=== PATIENT | male | born 1985 | race African-American/Black ===

== ENCOUNTER 2019-02-07 21:26 | Emergency (ER) | payer OTHER ==
[~2019-02-07] VITALS: Ht 180.3 cm; Wt 78.9 kg
[2019-02-07 21:53] LABS: ABSOLUTE NEUTROPHILS 7.8 thou/uL (1.4-8.2); BASOPHILS 0.4 % (0.0-2.0); EOSINOPHILS 0.7 % (0.0-3.0); HEMOGLOBIN 12.6 gm/dL (14.0-18.0); LYMPHOCYTES 20.3 % (24.0-44.0); MCH 23.1 pg (26.0-34.0); MCHC 32.2 g/dL (28.0-37.0); MCV 71.7 fL (80.0-100.0); MONOCYTES 9.3 % (1.0-8.0); PLATELET COUNT 191 thou/uL (150-400); POLYS 69.3 % (36.0-66.0); RBC 5.43 mil/uL (4.50-6.00); WBC 11.2 thou/uL (4.0-11.0)
[2019-02-07 22:01] LABS: ANION GAP 11 mmol/L (7-16); BUN 15 mg/dL (7-18); CALCIUM 9.1 mg/dL (8.5-10.1); CHLORIDE 106 mmol/L (98-107); CO2 24 mmol/L (21-32); CREATININE 1.1 mg/dL (0.7-1.3); GLUCOSE 88 mg/dL (74-106); POTASSIUM 3.4 mmol/L (3.5-5.1); SODIUM 141 mmol/L (136-145)
[2019-02-07 22:09] LABS: TROPONIN-I <0.06 ng/mL (<0.06)
[2019-02-07 22:43] VITALS: BP 109/59
--- NOTE | 2019-02-08 08:49 | EKG ---
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 : 1985 Requested By: Gabe Haynes Order Number: [id number] MD: Ludwig Patel Measurements Intervals [place] Rate: 69 P: 70 [place]: 169 QRS: 68 QRSD: 91 T: 61 QT: 386 QTc: 414 Interpretive Statements Sinus rhythm with competing junctional rhythm and sinus arrhythmia ST elev, probable normal early repol pattern No previous ECG available for comparison Electronically Signed On 02-08-2019 8:49:05 CDT by Ludwig Patel [email or web address] ��������������������������������������������� <ELECTRONICALLY SIGNED> ���������������������������������������� By: Ludwig Patel MD, [facility] ��������������������������������������������� 02/08/19 0849 2129 Ludwig Patel MD, FACC /EPI
== END 2019-02-07 22:54 | disposition home or self-care (01) ==
LOC: ER 21:26 → EDBD 21:26 → ER 22:54
PROVIDERS: Emergency Medicine
DX: R07.89 Other chest pain (principal); F17.210 Nicotine dependence, cigarettes, uncomplicated

== ENCOUNTER 2020-07-30 11:32 | Emergency (ER) | payer OTHER ==
[~2020-07-30] VITALS: Ht 182.9 cm; Wt 81.7 kg
[2020-07-30] MEDS ORDERED: POLYMYXIN B/TMP10 ML RT. EYE (11:52)
[2020-07-30 12:13] VITALS: BP 116/63
== END 2020-07-30 12:15 | disposition home or self-care (01) ==
LOC: ER 11:32
DX: H10.9 Unspecified conjunctivitis (principal); H00.011 Hordeolum externum right upper eyelid; F17.210 Nicotine dependence, cigarettes, uncomplicated

== ENCOUNTER 2020-08-22 21:30 | Emergency (ER) | payer OTHER ==
[~2020-08-22] VITALS: Ht 185.4 cm; Wt 81.7 kg
[~2020-08-22 21:30] MED LIST: POLYMYXIN B/TMP10 ML RT. EYE
[2020-08-22] MEDS ORDERED: NOHOMEMEDICATIONS (21:38)
[2020-08-22 21:46] LABS: ABSOLUTE NEUTROPHILS 5.7 thou/uL (1.4-8.2); BASOPHILS 1.1 % (0.0-2.0); EOSINOPHILS 3.1 % (0.0-3.0); HEMATOCRIT 39.6 % (42.0-52.0); HEMOGLOBIN 12.6 gm/dL (14.0-18.0); LYMPHOCYTES 30.4 % (24.0-44.0); MCH 23.2 pg (26.0-34.0); MCHC 31.9 g/dL (28.0-37.0); MCV 72.8 fL (80.0-100.0); MONOCYTES 11.5 % (1.0-8.0); PLATELET COUNT 211 thou/uL (150-400); POLYS 53.9 % (36.0-66.0); RBC 5.45 mil/uL (4.50-6.00); RDW 15.7 % (10.5-14.5); WBC 10.6 thou/uL (4.0-11.0)
[2020-08-22 22:01] LABS: ANION GAP 17 mmol/L (7-16); BUN 10 mg/dL (7-18); CALCIUM 9.7 mg/dL (8.5-10.1); CHLORIDE 100 mmol/L (98-107); CO2 21 mmol/L (21-32); CREATININE 1.3 mg/dL (0.7-1.3); GLUCOSE 147 mg/dL (74-106); SODIUM 138 mmol/L (136-145)
[2020-08-22 22:08] LABS: POTASSIUM 2.8 mmol/L (3.5-5.1)
[2020-08-22 23:01] LABS: ALBUMIN 4.3 g/dL (3.4-5.0); SGOT 27 U/L (15-37); SGPT 20 U/L (30-65); TOTAL BILIRUBIN 0.4 mg/dL (0.2-1.0); TOTAL PROTEIN 7.3 g/dL (6.4-8.2); TROPONIN-I <0.06 ng/mL (<0.06)
[2020-08-22 23:02] LABS: DIRECT BILIRUBIN 0.1 mg/dL (<0.1-0.2)
[2020-08-22 23:55] VITALS: BP 114/66
--- NOTE | 2020-08-23 07:26 | EKG ---
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 : 1985 Requested By: Angel Argueta Order Number: [id number] MD: Tato Butts Measurements Intervals [place] Rate: 69 P: 56 NE: 163 QRS: 75 QRSD: 96 T: 67 QT: 434 QTc: 465 Interpretive Statements Sinus rhythm Compared to ECG 02/07/2019 21:29:08 Sinus arrhythmia no longer present Junctional rhythm no longer present ST (T wave) deviation no longer present Electronically Signed On 08-23-2020 7:26:44 [employer]ZARD[employer] 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
== END 2020-08-23 00:05 | disposition home or self-care (01) ==
LOC: ER 21:30
PROVIDERS: Emergency Medicine
DX: R06.00 Dyspnea, unspecified (principal); F17.210 Nicotine dependence, cigarettes, uncomplicated; Z79.899 Other long term (current) drug therapy

== ENCOUNTER 2020-11-14 17:31 | Emergency (ER) | payer OTHER ==
[~2020-11-14] VITALS: Ht 180.3 cm; Wt 79.4 kg
[~2020-11-14 17:31] MED LIST changes: +NOHOMEMEDICATIONS
[2020-11-14 18:06] LABS: ABSOLUTE NEUTROPHILS 11.7 thou/uL (1.4-8.2); BASOPHILS 0.3 % (0.0-2.0); HEMATOCRIT 44.9 % (42.0-52.0); HEMOGLOBIN 14.9 gm/dL (14.0-18.0); LYMPHOCYTES 8.1 % (24.0-44.0); MCH 24.1 pg (26.0-34.0); MCHC 33.2 g/dL (28.0-37.0); MCV 72.6 fL (80.0-100.0); MONOCYTES 10.4 % (1.0-8.0); PLATELET COUNT 209 thou/uL (150-400); POLYS 80.2 % (36.0-66.0); RBC 6.18 mil/uL (4.50-6.00); RDW 15.9 % (10.5-14.5); WBC 14.5 thou/uL (4.0-11.0)
[2020-11-14 18:14] LABS: CALCIUM 9.3 mg/dL (8.5-10.1); CREATININE 1.2 mg/dL (0.7-1.3); POTASSIUM 3.5 mmol/L (3.5-5.1)
[2020-11-14 18:20] LABS: ALBUMIN 4.5 g/dL (3.4-5.0); TOTAL BILIRUBIN 0.5 mg/dL (0.2-1.0); TOTAL PROTEIN 8.2 g/dL (6.4-8.2)
[2020-11-14 19:46] LABS: URINE BILIRUBIN NEGATIVE (Negative); URINE BLOOD TRACE (Negative); URINE CLARITY CLEAR; URINE COLOR YELLOW; URINE GLUCOSE-RANDOM* NEGATIVE (Negative); URINE KETONES 1+ (Negative); URINE LEUKOCYTES-REFLEX NEGATIVE (Negative); URINE NITRITE-REFLEX NEGATIVE (Negative); URINE PROTEIN (DIPSTICK) NEGATIVE (Negative); URINE UROBILINOGEN 0.2 E.U./dl (0.2-1.0)
[2020-11-14] MEDS ORDERED: ONDANSETRON HCL4 M2 PO (20:00)
[2020-11-14] MEDS ORDERED: LEVSIN0.125 MG PO (20:00)
[2020-11-14 20:20] VITALS: BP 116/56
== END 2020-11-14 20:23 | disposition home or self-care (01) ==
LOC: ER 17:31
PROVIDERS: Physician Assistant
DX: R11.2 Nausea with vomiting, unspecified (principal); R19.7 Diarrhea, unspecified; J45.909 Unspecified asthma, uncomplicated; F17.210 Nicotine dependence, cigarettes, uncomplicated